=== PATIENT | male | born 1950 | race Caucasian/White ===

== ENCOUNTER 2024-10-11 06:53 | Day surgery (SDC) | payer OTHER, MEDICARE ==
[2024-10-07 14:09] VITALS: BMI 26.1
[2024-10-11] MEDS ORDERED: BUPIVACAINE HCL/PF 0.25% (2.5MG/ML) 10 ML VIAL ONE (10:44)
[2024-10-11] MEDS ORDERED: LIDOCAINE HCL/PF 2% SDV 5ML VIAL ONE (11:02)
[2024-10-11] MEDS ORDERED: ROCURONIUM BROMIDE 50 MG/5 ML SYRINGE ONE ×3 (11:03→12:25)
[2024-10-11] MEDS ORDERED: MIDAZOLAM HCL 2 MG/2 ML SINGLE DOSE VIAL ONE (11:03)
[2024-10-11] MEDS ORDERED: PROPOFOL 20 ML ONE ×2 (11:03→11:27)
[2024-10-11] MEDS ORDERED: ceFAZolin SODIUM 1 GM VIAL ONE (11:39)
[2024-10-11] MEDS: ceFAZolin 2 GRAM PREMIX BAG IVPB ONE (11:40)
[2024-10-11] MEDS: BUPIVACAINE HCL/PF 0.25% (2.5MG/ML) 10 ML VIAL IJ ONE ×2 (11:53)
[2024-10-11] MEDS ORDERED: ONDANSETRON 4 MG/2 ML VIAL ONE (14:30)
[2024-10-11] MEDS ORDERED: SUGAMMADEX SODIUM 200 MG/2 ML VIAL ONE (14:30)
[2024-10-11] MEDS ORDERED: ONDANSETRON 4 MG/2 ML VIAL IVPUSH PRN (15:50)
[2024-10-11] MEDS ORDERED: LACTATED RINGERS SOLUTION 1,000 ML IV SCH (16:00)
[2024-10-11 18:31] VITALS: RESP 20
[2024-10-11] MEDS ORDERED: oxyCODONE HCL 5 MG TABLET PO PRN (18:31)
[2024-10-11] MEDS: oxyCODONE HCL 5 MG TABLET PO PRN (18:33)
[2024-10-11] MEDS ORDERED: oxyCODONE HCL 10 MG SUSTAINED ACTING TABLET ONE (18:34)
[2024-10-11 19:25] VITALS: BP 130/62; PULSE 68; TEMP 98.1
== END 2024-10-11 19:14 | disposition home or self-care (01) ==
LOC: JASU-SURG 06:53
PROVIDERS: ATTEND Surgery
PROC: 8E0W4CZ Robotic Assisted Procedure of Trunk Region, Percutaneous Endoscopic Approach (ICD-10-PCS; 2024-10-11)
PROC: 0WUF4JZ Supplement Abdominal Wall with Synthetic Substitute, Percutaneous Endoscopic Approach (ICD-10-PCS; principal; 2024-10-11 11:00)
DX: K42.9 Umbilical hernia without obstruction or gangrene (principal)
CPT/HCPCS: 49595; S2900; 86850; 86900; 86901; 94760; C1781